=== PATIENT | male | born 1960 | race Caucasian/White ===

== ENCOUNTER 2019-01-14 12:43 | Outpatient (CLI) | payer BC ==
[~2019-01-14] VITALS: Ht 172.7 cm; Wt 95.8 kg
[2019-01-14 13:10] VITALS: BP 109/68
[2019-01-14 13:40] LABS: BASOPHILS # (AUTO) 0.1 10^3/uL (0.0-0.1); BASOPHILS % (AUTO) 1 % (0-10); EOSINOPHILS # (AUTO) 0.1 10^3/uL (0.0-0.3); EOSINOPHILS % (AUTO) 1 % (0-10); HEMATOCRIT 46 % (40-54); HEMOGLOBIN 15.6 G/DL (13.3-17.7); LYMPHOCYTES # (AUTO) 1.5 X 10^3 (1.0-4.0); LYMPHOCYTES % (AUTO) 25 % (12-44); MEAN CORPUSCULAR HEMOGLOBIN 31 PG (25-34); MEAN CORPUSCULAR HGB CONC 34 G/DL (32-36); MEAN CORPUSCULAR VOLUME 91 FL (80-99); MEAN PLATELET VOLUME 9.5 FL (7.4-10.4); MONOCYTES # (AUTO) 0.4 X 10^3 (0.0-1.0); MONOCYTES % (AUTO) 7 % (0-12); NEUTROPHILS % (AUTO) 66 % (42-75); PLATELET COUNT 234 10^3/uL (130-400); RED CELL DISTRIBUTION WIDTH 13.1 % (10.0-14.5)
[2019-01-14 13:41] LABS: BILIRUBIN,URINE NEGATIVE (NEGATIVE); CLARITY,URINE CLEAR; COLOR,URINE YELLOW; GLUCOSE, URINE (UA) NEGATIVE (NEGATIVE); KETONES,URINE NEGATIVE (NEGATIVE); LEUKOCYTE ESTERASE ,URINE NEGATIVE (NEGATIVE); NITRITE,URINE NEGATIVE (NEGATIVE); PH,URINE 7 (5-9); PROTEIN,URINE NEGATIVE (NEGATIVE); UROBILINOGEN,URINE NORMAL (NORMAL)
[2019-01-14 13:53] LABS: BACTERIA,URINE NEGATIVE /HPF; SQUAMOUS EPITHELIAL CELL,UR RARE /HPF
[2019-01-14 13:58] LABS: PROTHROMBIN TIME PATIENT 13.3 SEC (12.2-14.7)
[2019-01-14 14:01] LABS: ALANINE AMINOTRANSFERASE 17 U/L (0-55); ALBUMIN 4.5 GM/DL (3.2-4.5); ALKALINE PHOSPHATASE 52 U/L (40-136); BILIRUBIN,TOTAL 0.5 MG/DL (0.1-1.0); BUN/CREATININE RATIO 21; CALCIUM 9.7 MG/DL (8.5-10.1); CARBON DIOXIDE 27 MMOL/L (21-32); CHLORIDE 104 MMOL/L (98-107); CREATININE SERUM 0.91 MG/DL (0.60-1.30); GFR ESTIMATED > 60; GLUCOSE 91 MG/DL (70-105); SODIUM 139 MMOL/L (135-145); TOTAL PROTEIN 7.6 GM/DL (6.4-8.2)
--- NOTE | 2019-01-14 14:08 | Diagnostic Imaging Report ---
INDICATION: PRE-OP COMPARISON: None FINDINGS: Frontal and lateral views of the chest demonstrate normal heart size and pulmonary vascularity. The lungs are clear. There are no signs of infiltrate, pleural effusions or pneumothoraces. The visualized osseous structures show no acute abnormalities. IMPRESSION: 1. No acute process. No signs of infiltrates, effusions or pneumothoraces. Dictated by: Dictated on workstation # [id number]
[2019-01-18] MEDS ORDERED: SPIR50TA4 PO (09:49)
[2019-01-18] MEDS ORDERED: BUME1TAB8 PO (09:49)
[2019-01-18] MEDS ORDERED: MELO15TA39 PO (09:49)
[2019-01-18] MEDS ORDERED: POTA10CA43 PO (09:49)
[2019-01-18] MEDS ORDERED: CYCL10TA9 PO (09:49)
[2019-01-18] MEDS ORDERED: MULT-1029 PO (09:49)
[2019-01-18] MEDS ORDERED: MAGN400T39 PO (09:49)
[2019-01-18] MEDS ORDERED: ASPI-586 PO (09:49)
[2019-01-18] MEDS ORDERED: TEST75GE3 TOP (09:49)
[2019-01-18] MEDS ORDERED: DILT120C10 PO (09:49)
[2019-01-18] MEDS ORDERED: DILT120T3 PO (11:39)
== END 2019-01-14 15:45 ==
LOC: PREOP 12:43 → EDUNIT# 13:00 → PREOP 15:45
PROVIDERS: ATTEND Orthopaedic Surgery
DX: Z01.818 Encounter for other preprocedural examination (principal); M17.11 Unilateral primary osteoarthritis, right knee
CPT/HCPCS: 36415; 71046; 80053; 81000; 85025; 85610; 86850; 86900; 86901; 87081; 93005

== ENCOUNTER 2019-01-21 06:15 | Inpatient (IN) | payer BC ==
--- NOTE | 2019-01-18 11:39 | NUR ---
PREOP SENT OVER A COPY OF THE PATIENTS MEDICATION LIST. I CALLED [facility] IN [place] TO VERIFY LAST FILL DATES AND STRENGTHS. [facility] FILLED: 01-07-19 TESTOSTERONE GEL 2 PUMPS DAILY 12-29-18 DILTIAZEM 120MG TABLET BID #180 12-17-28 BUMETANIDE 1MG BID #180 12-09-18 SPIRONOLACTONE 50MG DAILY #90 12-09-18 POTASSIUM CHLORIDE 10MEQ CAP DAILY #90 12-08-18 MELOXICAM 15MG DAILY #90 06-05-18 FLEXERIL 10MG TID PRN #270 OTC MEDS ON LIST AND ENTERED BY PREOP: ASPIRIN 81MG DAILY MAGNESIUM 400MG DAILY CENTRUM SILVER DAILY NO DISCREPANCIES WERE NOTED SO I DID NOT CALL AND RE INTERVIEW THE PATIENT AT THIS TIME.
[2019-01-21] VITALS (14 sets, daily range): BP systolic 105–135; BP diastolic 69–95
[~2019-01-21] VITALS: Ht 172.7 cm; Wt 95.8 kg
[~2019-01-21 06:15] MED LIST: ASPI-586 PO; BUME1TAB8 PO; CYCL10TA9 PO; DILT120C10 PO; DILT120T3 PO; MAGN400T39 PO; MELO15TA39 PO; MULT-1029 PO; POTA10CA43 PO; SPIR50TA4 PO; TEST75GE3 TOP
[2019-01-21] MEDS ORDERED: GENTAMICIN 40 MG/ML 2 ML INJ SDV ONE (07:03)
[2019-01-21] MEDS ORDERED: MIDAZOLAM 2 MG/2 ML (VERSED) VIAL ONE (07:07)
[2019-01-21] MEDS ORDERED: LIDOCAINE PF 2% 5 ML (XYLOCAINE) VIAL ONE ×2 (07:07→07:16)
[2019-01-21] MEDS ORDERED: BUPIVACAINE 0.25% 30 ML (SENSORCAINE) VIAL ONE ×2 (07:07→09:06)
--- NOTE | 2019-01-21 07:12 | Progress Note-Pre Operative ---
Pre-Operative Progress Note H&P Reviewed The H&P was reviewed, patient examined and no changes noted. Date Seen by Provider: Jan 21, 2019 Time Seen by Provider: 07:12 Date H&P Reviewed: Jan 21, 2019 Time H&P Reviewed: 07:12 Pre-Operative Diagnosis: Primary degenerative joint disease right knee GUY IZAGUIRRE MD Jan 21, 2019 07:12
[2019-01-21] MEDS ORDERED: ONDANSETRON 4 MG/2 ML (SDV) Z0FRAN IV PRN (07:15)
[2019-01-21] MEDS ORDERED: MILK OF MAGNESIA 400 MG/5 ML 30 ML UDC PO PRN (07:15)
[2019-01-21] MEDS ORDERED: proPOfol 200 MG/20 ML (DIPRIVAN) VIAL IV ONE (07:16)
[2019-01-21] MEDS ORDERED: fentaNYL INJECTION 100 MCG/2 ML AMP ONE (07:16)
[2019-01-21] MEDS ORDERED: SEVOFLURANE (ULTANE) 15 ML INHAL SOLN ONE ×3 (07:16→09:05)
[2019-01-21] MEDS ORDERED: ONDANSETRON 4 MG/2 ML (SDV) Z0FRAN ONE (07:16)
[2019-01-21] MEDS ORDERED: DEXAMETHASONE 10 MG/ML (DECADRON) 1 ML VIAL ONE (07:16)
[2019-01-21] MEDS: LACTATED RINGERS 1,000 ML IV PRN ×2 (07:24→08:29)
[2019-01-21] MEDS ORDERED: ceFAZolin 2 GM IV Premixed 50 ML ONE (07:26)
[2019-01-21] MEDS ORDERED: ceFAZolin 2 GM IV Premixed 50 ML IV ONE (07:30)
[2019-01-21] MEDS ORDERED: BUPIVACAINE 0.5% 30 ML (SENSORCAINE) VIAL ONE (08:43)
[2019-01-21] MEDS ORDERED: ROPIVACAINE 5MG/ML 30ML VIAL ONE (08:50)
[2019-01-21] MEDS ORDERED: TESTOSTERONE PUMP TOP SCH (09:00)
[2019-01-21] MEDS ORDERED: TRANEXAMIC ACID 100 MG/ML 10 ML INJECTION IV ONE (09:05)
--- NOTE | 2019-01-21 09:31 | Progress Note-Post Operative ---
Post-Operative Progess Note Surgeon (s)/Social Work Instructor (s) Surgeon GUY IZAGUIRRE MD Social Work Instructor: FRED CUNNINGHAM PA-C Pre-Operative Diagnosis Primary degenerative joint disease right knee Post-Operative Diagnosis SAME Procedure & Operative Findings Date of Procedure 01/21/19 Procedure Performed/Findings RIGHT TOTAL KNEE ARTHROPLASTY (DICTATION # [id number]) Anesthesia Type GENERAL WITH ULTRASOUND GUIDED ADDUCTOR CANAL (FEMORAL) AND GENICULAR NERVE BLOCK Estimated Blood Loss Estimated blood loss (mL): 50 ML Specimens/Packing Specimens Removed NONE Packing: NONE GUY IZAGUIRRE MD Jan 21, 2019 09:31
--- NOTE | 2019-01-21 09:40 | Discharge Inst-Surgical ---
Discharge Inst-Surgical Reconcile Patient Problems Problems Reviewed?: Yes Depart Medication/Instructions New, Converted or Re-Newed RX: RX on Chart Consults/Follow Up Goal/Follow Up Appt.: FOLLOW UP WITH DR IZAGUIRRE IN 10-14 DAYS Patient Instructions: OUT PATIENT PHYSICAL THERAPY CPM MACHINE AT HOME 6 HOURS A DAY FOR 3 WEEKS KEEP INCISION DRY Activity Activity as Tolerated: Yes Walking Assistive Device: Walker Activity Instructions: Avoid Pulling & Pushing, Avoid Stress to Incision Elevate Extremity: Elevate Above Heart Driving Instructions: No Driving for 2 Weeks No Driving When on Pain Meds: Yes Incentive Spirometry: Every 2 Hours While Awake, For 2 weeks Avoid ALL Tobacco Products: Smoking of Any Kind, Chewing Tobacco Diet Discharge Diet: No Restrictions Diet for 24 Hours: No Alcohol Return to The Hospital For: SEVERE PAIN SEVERE CALF PAIN AND SWELLING Symptoms to Report to Physicia: Extremity Discoloration, Numbness/Tingling, Swelling Increased, Bleeding Excessive, Pain Increased, Constipation(Persistant), Fever Over 101 Degrees F If Any Problems/Questions/Issu: Contact Your Physician Skin/Wound Care Infection Signs and Symptoms: Increased Redness, Foul Odor of Wound, Increased Drainage, Skin Itchy or Has a Rash, Increased Swelling, Temperature Above 101 F Bathing Instructions: Shower Operative Area Clean and Dry: Keep Incision Clean/Dry Ice Pack: Ice On and Off Site GUY IZAGUIRRE MD Jan 21, 2019 09:39
[2019-01-21] MEDS ORDERED: MEPERIDINE (DEMEROL) INJ 50 MG/ML ONE (09:43)
[2019-01-21] MEDS ORDERED: morphine INJ 10 MG/ML 1ML (SYR OR VIAL) IVP ONE (09:45)
[2019-01-21] MEDS ORDERED: MEPERIDINE (DEMEROL) INJ 50 MG/ML IVP ONE (09:45)
[2019-01-21] MEDS ORDERED: ONDANSETRON 4 MG/2 ML (SDV) Z0FRAN IVP PRN (09:45)
[2019-01-21] MEDS ORDERED: morphine INJ 10 MG/ML 1ML (SYR OR VIAL) ONE (10:08)
--- NOTE | 2019-01-21 10:47 | NUR ---
PATIENT TO FLOOR AT THIS TIME ACCOMPANIED BY KYLE GREENBERG VIA CART.
--- NOTE | 2019-01-21 11:08 | Diagnostic Imaging Report ---
INDICATION: Right knee replacement. Time of exam 10:36 a.m. FINDINGS: Two views of the right knee demonstrate postoperative changes of total knee arthroplasty. Prosthetic elements are in good position. No fracture or loosening is seen. IMPRESSION: Satisfactory postoperative appearance to the right knee. Dictated by: Dictated on workstation # [id number]
[2019-01-21] MEDS: SPIRONOLACTONE 25 MG (ALDACTONE) TAB PO SCH (12:10)
[2019-01-21] MEDS: DOCUSATE SODIUM 100 MG (COLACE) CAP PO SCH ×2 (12:10→19:56)
[2019-01-21] MEDS: oxyCODONE/APAP 5/325MG (PERCOCET 5) TABLET PO PRN ×2 (12:11→21:45)
[2019-01-21] MEDS: morphine INJ 4 MG/ML 1 ML (VIAL/SYRINGE) IVP PRN ×2 (12:18→23:42)
--- NOTE | 2019-01-21 13:08 | OPERATIVE REPORT ---
DATE OF SERVICE: 01/21/2019 PREOPERATIVE DIAGNOSIS: Primary degenerative joint disease of right knee. POSTOPERATIVE DIAGNOSIS: Primary degenerative joint disease of right knee. PROCEDURE: Right total knee arthroplasty. SURGEON: Robert Rubio MD POLICE ACADEMY PROGRAM COORDINATOR: Franko Amezcua PA-C POLICE ACADEMY PROGRAM COORDINATOR SURGEON DUTIES: The patient positioning, retraction, wound closure, use of total joint instrumentation, application of sterile dressings. Use of an assistant service manager surgeon is medically indicated. ANESTHESIA: General with ultrasound-guided adductor canal and genicular nerve block, use of ultrasound-guided peripheral nerve block is medically indicated for postop pain control and the anesthesiologist was consulted for their expertise in placement of the block. COMPLICATIONS: None. SPECIMENS: None. ESTIMATED BLOOD LOSS: 50 mL. MATERIALS: ResiModel Triathlon cemented cruciate retaining total knee system with a size 6 CR femur, a size 6 universal tibial baseplate, a size 6 CS type 10 mm polyethylene tibial insert, and a 35 mm asymmetric patella. INDICATIONS: This man has had ongoing pain in the right knee due to primary degenerative joint disease. He has failed conservative treatment. He comes to the operating room for right total knee arthroplasty. PROCEDURE IN DETAIL: After informed consent, the patient was transported to the operating room, was placed on the operating table in supine position. General anesthesia was induced. A tourniquet was placed on the right thigh. The right lower extremity was prepped with isopropyl alcohol followed by ChloraPrep. It was draped in sterile fashion and Ioban was placed on the skin. The right lower extremity was exsanguinated and the tourniquet was inflated. A midline anterior incision was made over the right knee and was carried out through subcutaneous tissues down to the extensor mechanism. Bleeders were coagulated with electrocautery. A medial parapatellar arthrotomy and quadriceps splitting approach were utilized. There was noted to be a clear yellow effusion. The knee then was exposed and the soft tissue along the anteromedial and anterolateral tibia was elevated with electrocautery and Nieves elevators were carefully protecting the collateral ligaments and patellar ligament with retractors. The patella had severe degenerative changes with bare subchondral bone. The patella was everted. It was measured with calipers. Patella was resected with a sagittal saw for the appropriate thickness and then it was drilled for the 35 mm patella. Next, the knee was flexed. ACL was noted to be absent. He had some medial tibial defect noted in a varus deformity. The knee was flexed and the patella was retracted laterally. The extramedullary alignment guide was placed on the tibia. It was pinned into place and adjusted to take 2 mm off of the medial side. The tibial cut then was carried out with the sagittal saw. The medial and lateral menisci were excised. Next, the large drill bit was used to open the medullary canal of the femur and the intramedullary femoral alignment guide was placed. It was adjusted for 5 degrees flexion, 6 degrees valgus for 8 mm resection. Pins were placed in the distal femur and the alignment guide was removed. The distal femoral cut was carried out with a sagittal saw. Next, the femoral rotational guide was placed. Femoral component was externally rotated 3 degrees. Pinholes were drilled in the distal femur and then the femur was measured and was a 6. The #6 cutting block then was placed and the anterior to posterior and chamfer cuts were carried out with a sagittal saw. Next, the PCL retractor was placed. The tibia was subluxed anteriorly on the femur and the tibial trial was placed with pins in the tibia and then the 9 mm insert trial was placed on the tibia. The #6 femur trial was placed on the femur and then the knee was reduced. He had full extension and full flexion with good stability noted. I felt though that he go up to a 10 insert and this was trialed and I was pleased with that as well. The patellar tracking was satisfactory. The trial components were removed. The cancellous bony surfaces were thoroughly irrigated with pulse lavage suctioned and dried. The posterior capsule of the knee was treated with electrocautery for bleeders and then the posterior capsule of the knee was infiltrated with 30 mL of 0.5% ropivacaine for postoperative pain control to supplement his nerve block. The tibia then was subluxed anteriorly on the femur. Methyl methacrylate was mixed and the tibia was irrigated and suctioned and dried and the tibial implant was impacted into the tibia. Prior to this, the tibia was drilled and punched for the keel. The 10 mm polyethylene insert was impacted on to the tibia. Extruded cement was removed. Then, the knee was reduced and the femur was irrigated and suctioned dried and the femoral implant was cemented and impacted without difficulty removing extruded cement. The knee was held in full extension until the cement hardened. The patella was then cemented to the bone and clamped and extruded cement was removed from here as well. The knee was held in full extension until the cement hardened and the patellar clamp was removed. The knee was explored and any remaining cement soft tissue or bony debris was removed. The knee was assessed and had good stability in full extension, mid flexion, and 90 degrees flexion. There was full range of motion noted. The tourniquet then was let down. Bleeders were coagulated with electrocautery. The quadriceps tendon above the patella was repaired with #1 Vicryl suture and several #1 Vicryl sutures were placed at stress points and then the joint capsule was closed with a running double layer #2 Stratafix suture. A good watertight repair was obtained. Subcutaneous tissues were closed with interrupted running 2-0 Vicryl and the skin was repaired with a subcuticular 3-0 Caprosyn. Sterile dressing was applied. The patient had been given 1 gram of tranexamic acid for control of bleeding during the case. The patient then was taken to the recovery room in stable condition, having tolerated this procedure well. Job ID: [id number] DocumentID: [id number] Dictated Date: 01/21/2019 09:29:08 Refinery Operator Crude Unit Date: 01/21/2019 13:08:02 Dictated By: MD ELENA LOPES
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
--- NOTE | 2019-01-21 14:09 | NUR ---
DR. IZAGUIRRE NOTIFIED OF NEED FOR DVT PROPHYLAXIS, HE STATED NO LOVENOX THAT HE USES ASPIRIN 81 MG PO BID. THERE IS ALREADY ORDERS FOR THIS MEDICATION ON THE EMAR.
--- NOTE | 2019-01-21 14:23 | Physical Therapy Evaluation ---
PT Evaluation-General Medical Diagnosis Admission Date Jan 21, 2019 at 06:15 Medical Diagnosis: right DJD Onset Date: Jan 21, 2019 Therapy Diagnosis Therapy Diagnosis: debility Precautions Precautions/Isolations: Fall Prevention, Standard Precautions Weight Bear Status Right Lower Extremity: Right Weight Bearing/Tolerated Left Lower Extremity: Left Weight Bearing/Tolerated Referral Physician: Ramiro Reason for Referral: Evaluation/Treatment Medical History Pertinent Medical History: Arthritis Current History s/p right TKR Reviewed History: Yes Social History Home: Single Level Current Living Status: Spouse Prior Prior Level of Function SCALE: Activities may be completed with or without assistive devices. 6-Nhknijpcat-ogojfyu completes the activity by him/herself with no assistance from a helper. 5-Set-up or Clean-up Assistance-helper sets up or cleans up; patient completes activity. [place] assists only prior to or following the activity. 4-Supervision or Touching Assistance-helper provides verbal cues and/or touching/steadying and/or contact guard assistance as patient completes activity. Assistance may be provided throughout the activity or intermittently. 3-Partial/Moderate Assistance-helper does LESS THAN HALF the effort. [place] lifts, holds or supports trunk or limbs, but provides less than half the effort. 2-Substantial/Maximal Assistance-helper does MORE THAN HALF the effort. [place] lifts or holds trunk or limbs and provides more than half the effort. 1-Shhqghkcv-kbflwy does ALL the effort. Patient does none of the effort to complete the activity. Or, the assistance of 2 or more helpers is required for the patient to complete the activity. If activity was not attempted, code reason: 7-Patient Refused. 9-Not Applicable-not attempted and the patient did not perform the activity before the current illness, exacerbation or injury. 10-Not Attempted due to Environmental Limitations-(lack of equipment, weather restraints, etc.). 88-Not Attempted due to Medical Conditions or Safety Concerns. Bed Mobility: 7 Transfers (B,C,W/C): 7 Gait: 7 Stairs: 7 Indoor Mobility (Ambulation): Independent Stairs: Independent Prior Devices Use: None PT Evaluation-Current Subjective Patient reports nausea. Agrees to PT. Pain Numeric Pain Scale: 5-Moderate Pain Location: Right Location Body Site: Knee Pain Description: Acute Objective Patient Orientation: Normal For Age Problem Solving: Fair Attachments: IV ROM/Strength ROM Lower Extremities right knee flexion 0-50 degrees with CPM/ left LE WFL Strength Lower Extremities right LE 3-/5 grossly; left LE 4/5 Integumentary/Posture Integumentary refer to nursing notes Bowel Incontinence: No Bladder Incontinence: No Posture WFL Neuromuscular (Tone, Coordination, Reflexes) grossly intact Sensory Vision: Wears Glasses Hearing: Functional Sensation Right Lower Extremit: Intact Sensation Left Lower Extremity: Intact Transfers Roll Left to Right (QC): 5 Sit to Lying (QC): 5 Lying to Sitting/Side of Bed(Q: 5 Sit to Stand (QC): 5 Chair/Qxb-ow-Ajxah Xfer(QC): 5 Gait Does the Patient Walk?: Yes Mode of Locomotion: Walk Anticipated Mode of Locomotion: Walk Distance (FIM): 1=up to 49 ft Walk 10 feet (QC): 5 Walk 50 ft with 2 Turns(QC): 88 Walk 150 ft (QC): 88 Walking 10ft/uneven surface-QC: 88 Distance: 10' Gait Assistive Device: FWW Comments/Gait Description side stepping Balance Sitting Static: Normal Sitting Dynamic: Normal Standing Static: Normal Standing Dynamic: Normal Treatment CPM 0-[address] with polar pack Assessment/Needs 58 y.o. male, will benefit from skilled PT to address functional strength and mobility to improve current LOF to safely return to home with spouse and home health at maximum LOF; Rehab Potential: Fair PT Fpc Goals Manager Land Goals PT Fpc Goals Time Frame: Jan 25, 2019 Sit to Lying (QC): 6 Lying-Sitting on Side/Bed(QC): 6 Sit to Stand (QC): 6 Roll Left to Right (QC): 6 Chair/Mom-oc-Wttiq Xfer(QC): 6 Car Transfer (QC): 6 Does the Patient Walk: Yes Distance: 250' Walk 10 feet (QC): 6 Walk 10ft-Uneven Surface(QC): 6 Walk 50ft with 2 Turns (QC): 6 Walk 150 ft (QC): 6 Gait Assistive Device: FWW # of Steps: 4 1 Step (curb) (QC): 6 4 Steps (QC): 6 12 Steps (QC): 88 Stairs Level Of Assist: 6 Picking up an Object (QC): 6 PT Plan Problem List Problem List: Activity Tolerance, Functional Strength, Gait, ROM Treatment/Plan Treatment Plan: Continue Plan of Care Treatment Plan: Bed Mobility, Education, Functional Activity Nafisa, Functional Strength, Gait, Safety, Therapeutic Exercise, Transfers Treatment Duration: Jan 25, 2019 Frequency: 11 times per week Estimated Hrs Per Day: .5 hour per day Patient and/or Family Agrees t: Yes Time/GCodes Time In: 1336 Time Out: 1352 Total Billed Treatment Time: 16 Total Billed Treatment 1 visit EVModC 16 min CPM PADS KATY TEE PT Jan 21, 2019 14:23
[2019-01-21] MEDS: BUMETANIDE 1 MG (BUMEX) TAB PO SCH (16:19)
[2019-01-21] MEDS: KCL 10 MEQ TAB (MICRO K) PO SCH (16:19)
[2019-01-21] MEDS: ceFAZolin 2 GM IV Premixed 50 ML IV SCH (19:55)
[2019-01-21] MEDS: DILTIAZEM 120 MG (CARDIZEM CD) CAP PO SCH (19:56)
[2019-01-21] MEDS: ASPIRIN E.C. 81 MG (ECOTRIN) TAB PO SCH (19:56)
[2019-01-21] MEDS: ONDANSETRON 4 MG (ZOFRAN) ORAL DISSOLVE TAB PO PRN (20:41)
[2019-01-22 00:52] VITALS: BP 138/87
[2019-01-22 04:32] VITALS: BP 123/76
[2019-01-22] MEDS: ceFAZolin 2 GM IV Premixed 50 ML IV SCH ×2 (05:25→14:07)
[2019-01-22] MEDS: MULTIVIT W/MINERALS TAB (THERAGRAN M) PO SCH (06:12)
[2019-01-22] MEDS: BUMETANIDE 1 MG (BUMEX) TAB PO SCH ×2 (06:12→17:26)
[2019-01-22] MEDS: KCL 10 MEQ TAB (MICRO K) PO SCH (06:12)
[2019-01-22 06:49] LABS: BASOPHILS % (AUTO) 0 % (0-10); EOSINOPHILS % (AUTO) 0 % (0-10); HEMATOCRIT 42 % (40-54); HEMOGLOBIN 14.3 G/DL (13.3-17.7); LYMPHOCYTES # (AUTO) 1.5 X 10^3 (1.0-4.0); LYMPHOCYTES % (AUTO) 13 % (12-44); MEAN CORPUSCULAR HEMOGLOBIN 31 PG (25-34); MEAN CORPUSCULAR HGB CONC 34 G/DL (32-36); MEAN CORPUSCULAR VOLUME 90 FL (80-99); MEAN PLATELET VOLUME 9.6 FL (7.4-10.4); MONOCYTES # (AUTO) 1.3 X 10^3 (0.0-1.0); MONOCYTES % (AUTO) 11 % (0-12); NEUTROPHILS # (AUTO) 9.2 X 10^3 (1.8-7.8); NEUTROPHILS % (AUTO) 76 % (42-75); PLATELET COUNT 248 10^3/uL (130-400); RED CELL DISTRIBUTION WIDTH 12.7 % (10.0-14.5)
[2019-01-22] MEDS: ONDANSETRON 4 MG (ZOFRAN) ORAL DISSOLVE TAB PO PRN (06:50)
[2019-01-22 07:20] LABS: ALANINE AMINOTRANSFERASE 16 U/L (0-55); ALBUMIN 4.1 GM/DL (3.2-4.5); ALKALINE PHOSPHATASE 53 U/L (40-136); BILIRUBIN,TOTAL 0.5 MG/DL (0.1-1.0); BUN/CREATININE RATIO 16; CALCIUM 9.3 MG/DL (8.5-10.1); CARBON DIOXIDE 27 MMOL/L (21-32); CHLORIDE 100 MMOL/L (98-107); CREATININE SERUM 0.74 MG/DL (0.60-1.30); GFR ESTIMATED > 60; GLUCOSE 101 MG/DL (70-105); SODIUM 136 MMOL/L (135-145); TOTAL PROTEIN 6.9 GM/DL (6.4-8.2)
[2019-01-22 08:25] VITALS: BP 136/75
[2019-01-22] MEDS: oxyCODONE/APAP 5/325MG (PERCOCET 5) TABLET PO PRN ×3 (08:38→20:23)
[2019-01-22] MEDS: CYCLOBENZAPRINE 10 MG (FLEXERIL) TAB PO PRN ×3 (08:38→22:16)
[2019-01-22] MEDS ORDERED: CALCIUM CARBONATE 500 MG (TUMS) TAB.CHEW PO PRN (08:45)
[2019-01-22] MEDS: DILTIAZEM 120 MG (CARDIZEM CD) CAP PO SCH ×2 (08:51→20:23)
[2019-01-22] MEDS: MAGNESIUM OXIDE (MAG-OX)400 MG TAB PO SCH (08:51)
[2019-01-22] MEDS: SPIRONOLACTONE 25 MG (ALDACTONE) TAB PO SCH (08:51)
[2019-01-22] MEDS: ASPIRIN E.C. 81 MG (ECOTRIN) TAB PO SCH ×2 (08:52→20:23)
[2019-01-22] MEDS: DOCUSATE SODIUM 100 MG (COLACE) CAP PO SCH ×2 (08:52→20:23)
--- NOTE | 2019-01-22 09:26 | Anesthesia-General Post-Op ---
General Patient Condition Mental Status/LOC: Same as Preop Cardiovascular: Satisfactory Nausea/Vomiting: Absent Respiratory: Satisfactory Pain: Controlled Complications: Absent Post Op Complications Complications None Follow Up Care/Instructions Patient Instructions None needed. Anesthesia/Patient Condition Patient Condition Patient is doing well, no complaints, stable vital signs, no apparent adverse anesthesia problems. No complications reported per nursing. D/C home per [facility] Criteria: Yes WILLARD TORRES CRNA Jan 22, 2019 09:26
--- NOTE | 2019-01-22 11:08 | Progress Note - Hospitalist ---
AILYN HERNANDEZ [facility] 01/22/19 1108: Subjective HPI/CC On Admission Date Seen by Provider: Jan 22, 2019 Time Seen by Provider: 07:40 Chief complaint: s/p right knee replacement uncomplicated by Dr. Rubio. HPI: This is a 58yoWM clinic patient of Dr Perico Finn and Manufacturing Weaver Dr Jimenez who presented to [facility] after an uncomplicated right knee replacement by Dr. Rubio, currently he denies any pain, having no new problems since surgery and I have reviewed his home medications and checked vital signs. Subjective/Events-last exam * Pt reports having poor sleep due to a lot of knee pain * Pt reports having a little heartburn this morning for which he asked the nurse for some tums * Pt reports not having a bowel movement yet, but is able to urinate normally Focused Exam Respiratory: Chest Non Tender, Lungs Clear, Normal Breath Sounds, No Accessory Muscle Use, No Respiratory Distress Cardiovascular: Regular Rate, Rhythm, No Edema, No Gallop, No Murmur, Normal Peripheral Pulses Skin: normal color, warm/dry Objective Exam Vital Signs Vital Signs Date Time Temp Pulse Resp B/P (MAP) Pulse Ox O2 Delivery O2 Flow Rate FiO2 01/22/19 08:25 36.4 76 18 136/75 (95) 99 Room Air 01/21/19 10:05 3 Capillary Refill : Less Than 3 Seconds General Appearance: No Apparent Distress, WD/WN Neck: Full Range of Motion, Supple Respiratory: Chest Non Tender, Lungs Clear, Normal Breath Sounds, No Accessory Muscle Use, No Respiratory Distress Cardiovascular: Regular Rate, Rhythm, No Edema, No Gallop, No Murmur, Normal Peripheral Pulses Back: Normal Inspection, No Vertebral Tenderness Extremity: Non Tender, No Calf Tenderness, No Pedal Edema Neurologic/Psychiatric: Alert, Oriented x3, Normal Mood/Affect Skin: Normal Color, Warm/Dry Results/Procedures Lab Laboratory Tests 01/22/19 05:11 Patient resulted labs reviewed. Assessment/Plan Assessment and Plan Assess & Plan/Chief Complaint Assessment: Post right knee replacement Pain in right leg Plan: Monitor patient for any acute changes Manage pain for better overnight sleep Clinical Quality Measures DVT/VTE Risk/Contraindication: Risk Factor Score Per Nursin RFS Level Per Nursing on Admit: 4+=Very High JESSICA TREJO DO 01/22/192058: Subjective Subjective/Events-last exam Pt had some heart burn but denies need for any medication No BM yet Stool softeners maintained Pain is controlled CPM machine is maintained Review of Systems Musculoskeletal: leg pain Objective Exam General Appearance: No Apparent Distress, WD/WN Respiratory: Lungs Clear Cardiovascular: Regular Rate, Rhythm Extremity: Normal Capillary Refill, Normal Inspection, Normal Range of Motion (except post op lower leg), Non Tender, No Calf Tenderness, No Pedal Edema Neurologic/Psychiatric: Alert, Oriented x3, No Motor/Sensory Deficits, Normal Mood/Affect Assessment/Plan Assessment and Plan Assess & Plan/Chief Complaint BM regimen Pain control Monitor labs Diagnosis/Problems Diagnosis/Problems (1) Osteoarthritis of right knee (2) Palpitations Supervisory-Addendum Brief Verification & Attestation Participated in pt care: history, MDM, physical Personally performed: exam, history, MDM, supervision of care Care discussed with: Medical Student Procedures: n/a Results interpretation: Verified all documentation Verification and Attestation of Medical Student E/M Service A medical student performed and documented this service in my presence. I reviewed and verified all information documented by the medical student and made modifications to such information, when appropriate. I personally performed the physical exam and medical decision making. Jessica Trejo, Jan 22, 2019,20:59 AILYN HERNANDEZ [facility] Jan 22, 2019 11:08 JESSICA TREJO DO Jan 22, 2019 20:59
--- NOTE | 2019-01-22 11:55 | Physical Therapy Daily Note ---
PT Daily Note-Current Subjective Patient agrees to PT. Pain Numeric Pain Scale: 7 Location: Right Location Body Site: Knee Pain Description: Acute Mental Status Patient Orientation: Normal For Age Attachments: IV Transfers SCALE: Activities may be completed with or without assistive devices. 2-Toutfiwnxh-gvmawhm completes the activity by him/herself with no assistance from a helper. 5-Set-up or Clean-up Assistance-helper sets up or cleans up; patient completes activity. [place] assists only prior to or following the activity. 4-Supervision or Touching Assistance-helper provides verbal cues and/or touching/steadying and/or contact guard assistance as patient completes activity. Assistance may be provided throughout the activity or intermittently. 3-Partial/Moderate Assistance-helper does LESS THAN HALF the effort. [place] lifts, holds or supports trunk or limbs, but provides less than half the effort. 2-Substantial/Maximal Assistance-helper does MORE THAN HALF the effort. [place] lifts or holds trunk or limbs and provides more than half the effort. 5-Lrsfdizig-cburoe does ALL the effort. Patient does none of the effort to complete the activity. Or, the assistance of 2 or more helpers is required for the patient to complete the activity. If activity was not attempted, code reason: 7-Patient Refused. 9-Not Applicable-not attempted and the patient did not perform the activity before the current illness, exacerbation or injury. 10-Not Attempted due to Environmental Limitations-(lack of equipment, weather restraints, etc.). 88-Not Attempted due to Medical Conditions or Safety Concerns. Roll Left to Right (QC): 6 Sit to Lying (QC): 6 Sit to Stand (QC): 6 Chair/Dqn-nn-Woilv Xfer(QC): 6 Bed to/from Chair: 6 Weight Bearing Right Lower Extremity: Right Weight Bearing/Tolerated Left Lower Extremity: Left Weight Bearing/Tolerated Gait Training Does the Patient Walk?: Yes Distance: 300' Walk 10 feet (QC): 6 Walk 50 ft with 2 Turns(QC): 6 Walk 150 ft (QC): 6 Gait Assistive Device: FWW reciprocal pattern/antalgic Exercises Supine Ex: Ankle pumps, Quad Set, Heel Slides, Straight leg raise Supine Reps: 15 Seated Therapy Exercises: Long arc quads Seated Reps: 15 Treatments CPM 0-60 degrees with polar pack Assessment Patient progressing with treatment plan. PT to increase activity as tolerated by patient. PT Teacher Of Family And Consumer Science Goals Teacher Of Family And Consumer Science Goals PT Teacher Of Family And Consumer Science Goals Time Frame: Jan 25, 2019 Sit to Lying (QC): 6 Lying-Sitting on Side/Bed(QC): 6 Sit to Stand (QC): 6 Roll Left to Right (QC): 6 Chair/Jxm-hu-Sipfz Xfer(QC): 6 Car Transfer (QC): 6 Does the Patient Walk: Yes Distance: 250' Walk 10 feet (QC): 6 Walk 10ft-Uneven Surface(QC): 6 Walk 50ft with 2 Turns (QC): 6 Walk 150 ft (QC): 6 Gait Assistive Device: FWW # of Steps: 4 1 Step (curb) (QC): 6 4 Steps (QC): 6 12 Steps (QC): 88 Stairs Level Of Assist: 6 Picking up an Object (QC): 6 PT Plan Treatment/Plan Treatment Plan: Continue Plan of Care Treatment Plan: Bed Mobility, Education, Functional Activity Nafisa, Functional Strength, Gait, Safety, Therapeutic Exercise, Transfers Treatment Duration: Jan 25, 2019 Frequency: 11 times per week Estimated Hrs Per Day: .5 hour per day Patient and/or Family Agrees t: Yes Time/GCodes Time In: 825 Time Out: 854 Total Billed Treatment Time: 29 Total Billed Treatment 1 visit EX 14 min GT 15 min KTAY TEE PT Jan 22, 2019 11:54
--- NOTE | 2019-01-22 12:56 | Occupational Therapy Eval ---
OT Evaluation-General/PLF Medical Diagnosis Admission Date Jan 21, 2019 at 06:15 Medical Diagnosis: right DJD Onset Date: Jan 21, 2019 Therapy Diagnosis Therapy Diagnosis: debility Precautions Precautions/Isolations: Standard Precautions Safety Interventions: None Referral Physician: Ramiro Medical History Pertinent Medical History: Arthritis Additional Medical History left TKA, sleep apnea, GERD, chronic back pain, bilateral shoulder surgery Current History pt s/p elective right TKA Reviewed History: Yes Social History Home: Single Level Current Living Status: Spouse Entry Into Home: Ramp ADL-Prior Level of Function SCALE: Activities may be completed with or without assistive devices. 5-Ozdtgxwhfm-jllcgjn completes the activity by him/herself with no assistance from a helper. 5-Set-up or Clean-up Assistance-helper sets up or cleans up; patient completes activity. [place] assists only prior to or following the activity. 4-Supervision or Touching Assistance-helper provides verbal cues and/or touching/steadying and/or contact guard assistance as patient completes activity. Assistance may be provided throughout the activity or intermittently. 3-Partial/Moderate Assistance-helper does LESS THAN HALF the effort. [place] lifts, holds or supports trunk or limbs, but provides less than half the effort. 2-Substantial/Maximal Assistance-helper does MORE THAN HALF the effort. [place] lifts or holds trunk or limbs and provides more than half the effort. 1-Bqgbjbrua-xeuhtb does ALL the effort. Patient does none of the effort to complete the activity. Or, the assistance of 2 or more helpers is required for the patient to complete the activity. If activity was not attempted, code reason: 7-Patient Refused. 9-Not Applicable-not attempted and the patient did not perform the activity before the current illness, exacerbation or injury. 10-Not Attempted due to Environmental Limitations-(lack of equipment, weather restraints, etc.). 88-Not Attempted due to Medical Conditions or Safety Concerns. ADL PLOF Comments Pt reports being independent prior to surgery. 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 Self Care: Independent Functional Cognition: Independent Drive Self: Yes OT Current Status Subjective Pt in bed, agrees to evaluation. Pt reports 5/10 right knee pain Mental Status/Objective Patient Orientation: Person, Place, Time, Situation Current Upper Extremity ROM functional Upper Extremity Coordination intact ADL-Treatment ADL-Current Pt in bed, states he has already dressed himself this morning. Pt states he is getting up with supervision only. Has already ambulated with PT. Pt declined to complete any ADLs at this time. States he would like to take a shower later today, but wants his to assist. Pt states he had his left knee replaced and is familiar with recovery. Pt has no questions or concerns regarding ADLs or home safety. States spouse will be available to assist as needed. Pt declined further OT at this time. Pt resting in bed with needs met and CPM in place, spouse present. Education OT Patient Education: Rehab process Teaching Recipient: Patient Teaching Methods: Discussion Response to Teaching: Verbalize Understanding OT Short Term Goals Short Term Goals 1=Demonstrate adherence to instructed precautions during ADL tasks. 2=Patient will verbalize/demonstrate understanding of assistive devices/modifications for ADL. 3=Patient will improve strength/tolerance for activity to enable patient to perform ADL's. OT Cartridge Feeder Goals Cartridge Feeder Goals 1=Demonstrate adherence to instructed precautions during ADL tasks. 2=Patient will verbalize/demonstrate understanding of assistive devices/modifications for ADL. 3=Patient will improve strength/tolerance for activity to enable patient to perform ADL's. OT Education/Plan Problem List/Assessment Pt s/p right TKA. Pt has already dressed and completed ADLs this morning, states he did not have any difficulty. Declined to practice ADLs or transfers at this time. Education provided regarding ADLs. Pt states understanding of education and has no questions or concerns, states spouse will assist as needed. No skilled OT intervention indicated at this time. D/c OT Discharge Recommendations Plan/Recommendations: Discontinue OT Treatment Plan/Plan of Care Treatment Duration: Jan 22, 2019 Frequency: 1 time per week (evaluation only) Estimated Hrs Per Day: Other (evaluation only) Rehab Potential: Good Time/GCodes Start Time: 09:56 Stop Time: 10:08 Total Time Billed (hr/min): 12 Billed Treatment Time 1 visit, ARLETTE(12minutes) JIMMY REILLY OT Jan 22, 2019 12:56
--- NOTE | 2019-01-22 15:03 | Physical Therapy Daily Note ---
PT Daily Note-Current Subjective Patient reports nausea. Agrees to PT. Pain Numeric Pain Scale: 5-Moderate Pain Location: Right Location Body Site: Knee Pain Description: Acute Mental Status Patient Orientation: Normal For Age Transfers SCALE: Activities may be completed with or without assistive devices. 2-Tlifwjsuxy-lnoybzi completes the activity by him/herself with no assistance from a helper. 5-Set-up or Clean-up Assistance-helper sets up or cleans up; patient completes activity. [place] assists only prior to or following the activity. 4-Supervision or Touching Assistance-helper provides verbal cues and/or touching/steadying and/or contact guard assistance as patient completes activity. Assistance may be provided throughout the activity or intermittently. 3-Partial/Moderate Assistance-helper does LESS THAN HALF the effort. [place] lifts, holds or supports trunk or limbs, but provides less than half the effort. 2-Substantial/Maximal Assistance-helper does MORE THAN HALF the effort. [place] lifts or holds trunk or limbs and provides more than half the effort. 5-Nzgsauakk-eaqqoz does ALL the effort. Patient does none of the effort to complete the activity. Or, the assistance of 2 or more helpers is required for the patient to complete the activity. If activity was not attempted, code reason: 7-Patient Refused. 9-Not Applicable-not attempted and the patient did not perform the activity before the current illness, exacerbation or injury. 10-Not Attempted due to Environmental Limitations-(lack of equipment, weather restraints, etc.). 88-Not Attempted due to Medical Conditions or Safety Concerns. Roll Left to Right (QC): 6 Sit to Lying (QC): 6 Sit to Stand (QC): 6 Chair/Nqu-ls-Wxbtx Xfer(QC): 6 Bed to/from Chair: 6 Weight Bearing Right Lower Extremity: Right Weight Bearing/Tolerated Left Lower Extremity: Left Weight Bearing/Tolerated Gait Training Does the Patient Walk?: Yes Distance: 300' Walk 10 feet (QC): 6 Walk 50 ft with 2 Turns(QC): 6 Walk 150 ft (QC): 6 Gait Assistive Device: FWW slow, reciprocal pattern Exercises Supine Ex: Ankle pumps, Quad Set, Heel Slides, Straight leg raise Supine Reps: 15 Seated Therapy Exercises: Long arc quads Standing Reps: 15 Treatments CPM 0-60 degrees with polar pack in place Assessment Current Status: Excellent Progress Patient tolerated treatment well. Increase activity as tolerated. PT Counsellors Goals Chcf Goals PT Chcf Goals Time Frame: Jan 25, 2019 Sit to Lying (QC): 6 Lying-Sitting on Side/Bed(QC): 6 Sit to Stand (QC): 6 Roll Left to Right (QC): 6 Chair/Vtq-xs-Qwdtm Xfer(QC): 6 Car Transfer (QC): 6 Does the Patient Walk: Yes Distance: 250' Walk 10 feet (QC): 6 Walk 10ft-Uneven Surface(QC): 6 Walk 50ft with 2 Turns (QC): 6 Walk 150 ft (QC): 6 Gait Assistive Device: FWW # of Steps: 4 1 Step (curb) (QC): 6 4 Steps (QC): 6 12 Steps (QC): 88 Stairs Level Of Assist: 6 Picking up an Object (QC): 6 PT Plan Treatment/Plan Treatment Plan: Continue Plan of Care Treatment Plan: Bed Mobility, Education, Functional Activity Nafisa, Functional Strength, Gait, Safety, Therapeutic Exercise, Transfers Treatment Duration: Jan 25, 2019 Frequency: 11 times per week Estimated Hrs Per Day: .5 hour per day Patient and/or Family Agrees t: Yes Time/GCodes Time In: 1319 Time Out: 1334 Total Billed Treatment Time: 15 Total Billed Treatment 1 visit FA 15 min KATY TEE PT Jan 22, 2019 15:03
--- NOTE | 2019-01-22 15:31 | Progress Note ---
Subjective Date Seen by a Provider: Jan 22, 2019 Time Seen by a Provider: 15:35 Subjective/Events-last exam Patient states doing well.. has been up walking. void and passing rectal gas Objective Exam Vital Signs Date Time Temp Pulse Resp B/P (MAP) Pulse Ox O2 Delivery O2 Flow Rate FiO2 01/22/19 09:00 Room Air 01/22/19 08:25 36.4 76 18 136/75 (95) 99 Room Air 01/22/19 04:32 36.8 79 18 123/76 (92) 97 Room Air 01/22/19 00:52 36.8 85 19 138/87 (104) 97 Room Air 01/21/19 20:00 Room Air 01/21/19 20:00 37.1 81 20 127/76 (93) 98 Room Air 01/21/19 16:00 36.7 71 18 119/71 (87) 99 Room Air I & O 01/22/19 07:00 Intake Total 2870 ml Output Total 1400 ml Balance 1470 ml Capillary Refill : Less Than 3 Seconds General Appearance: No Apparent Distress, WD/WN HEENT: PERRL/EOMI, TMs Normal, Normal ENT Inspection, Pharynx Normal Neck: Full Range of Motion, Normal Inspection, Non Tender, Supple Peripheral Pulses: 2+ Femoral (R) Extremity: Normal Capillary Refill, Normal Inspection Neurologic/Psychiatric: Alert, Oriented x3, No Motor/Sensory Deficits Results Lab Laboratory Tests 01/22/19 05:11: White Blood Count 12.0H, Red Blood Count 4.67, Hemoglobin 14.3, Hematocrit 42, Mean Corpuscular Volume 90, Mean Corpuscular Hemoglobin 31, Mean Corpuscular Hemoglobin Concent 34, Red Cell Distribution Width 12.7, Platelet Count 248, Mean Platelet Volume 9.6, Neutrophils (%) (Auto) 76H, Lymphocytes (%) (Auto) 13, Monocytes (%) (Auto) 11, Eosinophils (%) (Auto) 0, Basophils (%) (Auto) 0, Neutrophils # (Auto) 9.2H, Lymphocytes # (Auto) 1.5, Monocytes # (Auto) 1.3H, Eosinophils # (Auto) 0.0, Basophils # (Auto) 0.0, Sodium Level 136, Potassium Level 4.0, Chloride Level 100, Carbon Dioxide Level 27, Anion Gap 9, Blood Urea Nitrogen 12, Creatinine 0.74, Estimat Glomerular Filtration Rate > 60, BUN/Creatinine Ratio 16, Glucose Level 101, Calcium Level 9.3, Corrected Calcium 9.2, Total Bilirubin 0.5, Aspartate Amino Transf (AST/SGOT) 17, Alanine Aminotransferase (ALT/SGPT) 16, Alkaline Phosphatase 53, Total Protein 6.9, Albumin 4.1 Assessment/Plan Assessment/Plan Assess & Plan/Chief Complaint Right total knee arthroplasty Final Diagnosis Right TKA Clinical Quality Measures DVT/VTE Risk/Contraindication: Risk Factor Score Per Nursin RFS Level Per Nursing on Admit: 4+=Very High FRED CUNNINGHAM Jan 22, 2019 15:31
[2019-01-22 16:00] VITALS: BP 115/58
[2019-01-23] VITALS: BP 108/64
[2019-01-23] MEDS: BUMETANIDE 1 MG (BUMEX) TAB PO SCH (05:51)
[2019-01-23] MEDS: MULTIVIT W/MINERALS TAB (THERAGRAN M) PO SCH (05:51)
[2019-01-23] MEDS: oxyCODONE/APAP 5/325MG (PERCOCET 5) TABLET PO PRN ×2 (05:51→10:25)
[2019-01-23] MEDS: KCL 10 MEQ TAB (MICRO K) PO SCH (05:52)
[2019-01-23] MEDS: CYCLOBENZAPRINE 10 MG (FLEXERIL) TAB PO PRN ×2 (06:40→10:56)
[2019-01-23 07:11] LABS: BASOPHILS % (AUTO) 0 % (0-10); EOSINOPHILS % (AUTO) 0 % (0-10); HEMATOCRIT 42 % (40-54); LYMPHOCYTES # (AUTO) 1.7 X 10^3 (1.0-4.0); LYMPHOCYTES % (AUTO) 17 % (12-44); MEAN CORPUSCULAR HEMOGLOBIN 30 PG (25-34); MEAN CORPUSCULAR HGB CONC 33 G/DL (32-36); MEAN CORPUSCULAR VOLUME 91 FL (80-99); MEAN PLATELET VOLUME 9.1 FL (7.4-10.4); MONOCYTES # (AUTO) 1.4 X 10^3 (0.0-1.0); MONOCYTES % (AUTO) 14 % (0-12); NEUTROPHILS % (AUTO) 69 % (42-75); PLATELET COUNT 219 10^3/uL (130-400); WHITE BLOOD COUNT 10.1 10^3/uL (4.3-11.0)
[2019-01-23 07:33] LABS: ALANINE AMINOTRANSFERASE 9 U/L (0-55); ALBUMIN 3.8 GM/DL (3.2-4.5); ALKALINE PHOSPHATASE 45 U/L (40-136); BILIRUBIN,TOTAL 0.5 MG/DL (0.1-1.0); BUN/CREATININE RATIO 16; CALCIUM 9.1 MG/DL (8.5-10.1); CARBON DIOXIDE 28 MMOL/L (21-32); CHLORIDE 98 MMOL/L (98-107); CREATININE SERUM 0.79 MG/DL (0.60-1.30); GFR ESTIMATED > 60; GLUCOSE 105 MG/DL (70-105); POTASSIUM 3.9 MMOL/L (3.6-5.0); SODIUM 136 MMOL/L (135-145); TOTAL PROTEIN 6.8 GM/DL (6.4-8.2)
[2019-01-23 08:00] VITALS: BP 128/76
--- NOTE | 2019-01-23 08:55 | Physical Therapy Daily Note ---
PT Daily Note-Current Subjective Agrees to PT. Hopes to go home today. reports he feels he can manage. Transfers SCALE: Activities may be completed with or without assistive devices. 4-Gyrbwitaei-bhirrpa completes the activity by him/herself with no assistance from a helper. 5-Set-up or Clean-up Assistance-helper sets up or cleans up; patient completes activity. [place] assists only prior to or following the activity. 4-Supervision or Touching Assistance-helper provides verbal cues and/or touching/steadying and/or contact guard assistance as patient completes a ctivity. Assistance may be provided throughout the activity or intermittently. 3-Partial/Moderate Assistance-helper does LESS THAN HALF the effort. [place] lifts, holds or supports trunk or limbs, but provides less than half the effort. 2-Substantial/Maximal Assistance-helper does MORE THAN HALF the effort. [place] lifts or holds trunk or limbs and provides more than half the effort. 6-Yvcrmqnhg-cbxzhf does ALL the effort. Patient does none of the effort to complete the activity. Or, the assistance of 2 or more helpers is required for the patient to complete the activity. If activity was not attempted, code reason: 7-Patient Refused. 9-Not Applicable-not attempted and the patient did not perform the activity before the current illness, exacerbation or injury. 10-Not Attempted due to Environmental Limitations-(lack of equipment, weather restraints, etc.). 88-Not Attempted due to Medical Conditions or Safety Concerns. Transfers (B, C, W/C): 6 Sit to Lying (QC): 6 Sit to Stand (QC): 6 mod indep with all functional trasnfers without safety concern Weight Bearing Right Lower Extremity: Right Weight Bearing/Tolerated Left Lower Extremity: Left Weight Bearing/Tolerated Gait Training Does the Patient Walk?: Yes Distance: 300 ft Gait Assistive Device: FWW 300 ft with FWW mod indep; able to stand at toilet to urniate and sink to brush teeth all mod indep. Exercises Seated Therapy Exercises: Ankle pumps, Sit to stand, Long arc quads, Hip flexion, Hamstring Curls Seated Reps: 15 Assessment Current Status: Excellent Progress Mod indep with mobility and good performance of exercises; knee flexion to 90 degrees. PT Motel Manager Goals Group Home Goals PT Group Home Goals Time Frame: Jan 25, 2019 Sit to Lying (QC): 6 Lying-Sitting on Side/Bed(QC): 6 Sit to Stand (QC): 6 Roll Left to Right (QC): 6 Chair/Grg-dq-Vhqlf Xfer(QC): 6 Car Transfer (QC): 6 Does the Patient Walk: Yes Distance: 250' Walk 10 feet (QC): 6 Walk 10ft-Uneven Surface(QC): 6 Walk 50ft with 2 Turns (QC): 6 Walk 150 ft (QC): 6 Gait Assistive Device: FWW # of Steps: 4 1 Step (curb) (QC): 6 4 Steps (QC): 6 12 Steps (QC): 88 Stairs Level Of Assist: 6 Picking up an Object (QC): 6 PT Plan Problem List Problem List: Activity Tolerance, Functional Strength, Safety, Balance, Gait, Transfer Treatment/Plan Treatment Plan: Continue Plan of Care Treatment Plan: Bed Mobility, Education, Functional Activity Nafisa, Functional Strength, Gait, Safety, Therapeutic Exercise, Transfers Treatment Duration: Jan 25, 2019 Frequency: 11 times per week Estimated Hrs Per Day: .5 hour per day Patient and/or Family Agrees t: Yes Safety Risks/Education Patient Education: Gait Training, Safety Issues Teaching Recipient: Patient Teaching Methods: Discussion Response to Teaching: Return Demonstration Time/GCodes Time In: 730 Time Out: 808 Total Billed Treatment Time: 38 Total Billed Treatment visit GT 23 EX 15 SASHA PINZON PT Jan 23, 2019 08:55
[2019-01-23] MEDS: DOCUSATE SODIUM 100 MG (COLACE) CAP PO SCH (09:28)
[2019-01-23] MEDS: SPIRONOLACTONE 25 MG (ALDACTONE) TAB PO SCH (09:28)
[2019-01-23] MEDS: DILTIAZEM 120 MG (CARDIZEM CD) CAP PO SCH (09:29)
[2019-01-23] MEDS: ASPIRIN E.C. 81 MG (ECOTRIN) TAB PO SCH (09:29)
[2019-01-23] MEDS: MAGNESIUM OXIDE (MAG-OX)400 MG TAB PO SCH (09:29)
[2019-01-23] MEDS ORDERED: ASPI-586 PO (09:52)
[2019-01-23] MEDS ORDERED: OXYC1TAB87 PO (09:52)
[2019-01-23] MEDS ORDERED: ONDA4TAB11 PO (09:52)
--- NOTE | 2019-01-23 09:59 | Discharge Summary ---
Diagnosis/Chief Complaint Date of Admission Jan 21, 2019 at 06:15 Date of Discharge Discharge Date: Jan 23, 2019 Discharge Time: 09:53 Admission Diagnosis Admission Diagnosis right knee primary osteoarthritis Discharge Diagnosis right knee primary osteoarthritis Reason Hospital Visit right knee pain Discharge Summary Hospital Course Was the Problem List Reviewed?: Yes Hospital Course Patient was admitted to [facility] for scheduled surgery. Patient underwent Right TKA on 01-21-19. Patient progressed well post-operatively, and there were no complications or events during his hospital course. On POD #2 he was ambulating well with a walker, and had good pain control with oral analgesics. Due to his continued progress, he was felt to be ready for discharge. Labs Laboratory Tests 01/22/19 05:11: White Blood Count 12.0H, Neutrophils (%) (Auto) 76H, Neutrophils # (Auto) 9.2H, Monocytes # (Auto) 1.3H 01/23/19 06:54: Monocytes # (Auto) 1.4H, Monocytes (%) (Auto) 14H Procedures Right total knee arthroplasty Discharge Physical Examination Allergies: Coded Allergies: hydrocodone (Verified Allergy, Intermediate, N/V, DIZZINESS, 01/14/19) Vitals & I&Os Vital Signs Date Time Temp Pulse Resp B/P (MAP) Pulse Ox O2 Delivery O2 Flow Rate FiO2 01/23/19 00:00 37.5 67 12 108/64 (79) 94 Room Air 01/21/19 10:05 3 General Appearance: Alert, Oriented X3 HEENT: Atraumatic, PERRLA Respiratory: Clear to Auscultation, Normal Air Movement Cardiovascular: Regular Rate Abdominal: Normal Bowel Sounds, Soft Extremities: Normal Pulses, Other (No calf tenderness) Skin: Other (Dressing CDI) Neuro: Normal Speech, Strength at 5/5 X4 Ext, Normal Tone, Sensation Intact, Cranial Nerves 3-12 NL Psych/Mental Status: Mental Status NL Discharge Home Medications Reviewed and agree with Discharge Medication list on patient's Discharge Instruction sheet Instructions to Patient/Family Please see electronic discharge instructions given to patient. Clinical Quality Measures DVT/VTE Risk/Contraindication: Risk Factor Score Per Nursin RFS Level Per Nursing on Admit: 4+=Very High QI PALUMBO Jan 23, 2019 09:59
--- NOTE | 2019-01-23 10:50 | NUR ---
DRESSING CHANGED TO RIGHT KNEE, NO DRAINAGE OR REDNESS, DISCHARGE INSTRUCTIONS GIVEN, VERBALIZED UNDERSTANDING OF FOLLOW UP APPOINTMENT, CPM MACHINE, ICE PACK AND MEDICATIONS, PRESCRIPTIONS GIVEN TO PATIENT, AT BEDSIDE.
[2019-01-23 11:00] VITALS: BP 128/76
--- NOTE | 2019-01-23 11:00 | NUR ---
RICARDA FLOREZ I demonstrates understanding of discharge instructions and accurately returns instructions upon questioning. Copy of Post-Discharge Instructions and Medication Discharge Instructions given to PATIENT. RICARDA FLOREZ I is able to manage continuing needs after discharge. Patients belongings returned to PATIENT. Skin dry and intact; INCISION DRESSING DRY AND CLEAN TO KNEE. Patient discharged from [facility]- on 01/23/19 at 1100. RICARDA FLOREZ I left floor via W/C, accompanied by STAFF AND .
== END 2019-01-23 11:00 | disposition home or self-care (01) | DRG 470 ==
LOC: 4TH 06:15 → SURG 06:16 → 4TH 11:25
PROVIDERS: ADMIT Orthopaedic Surgery; ATTEND Orthopaedic Surgery
PROC: 0SRC0J9 Replacement of Right Knee Joint with Synthetic Substitute, Cemented, Open Approach (ICD-10-PCS; principal; 2019-01-21 07:45)
DX: M17.11 Unilateral primary osteoarthritis, right knee (principal); M19.041 Primary osteoarthritis, right hand; M10.9 Gout, unspecified; M41.9 Scoliosis, unspecified; E66.9 Obesity, unspecified; Z68.32 Body mass index [BMI] 32.0-32.9, adult; R00.2 Palpitations; J30.2 Other seasonal allergic rhinitis; R12 Heartburn; Z96.652 Presence of left artificial knee joint; Z96.611 Presence of right artificial shoulder joint; Z96.612 Presence of left artificial shoulder joint; Z88.5 Allergy status to narcotic agent
CPT/HCPCS: 36415; 73560; 80053; 85025; 86850; 86900; 86901; 94664